=== PATIENT | male | born 1985 | race Hispanic/Latino ===

== ENCOUNTER 2024-01-05 19:53 | Emergency (ER) | payer SELFPAY ==
[2024-01-05] MEDS ORDERED: Boostrix 0.5 ML (Tdap) VIAL (>/=7 yrs of age) ONE (20:18)
[2024-01-05] MEDS ORDERED: Ondansetron ODT 4 MG TAB ONE (20:18)
[2024-01-05] MEDS ORDERED: HYDROcodone/Acetaminophen 10/325 mg Tablet ONE (20:18)
[2024-01-05] MEDS ORDERED: Lidocaine 1% (PF) 30 ML VIAL ONE (20:48)
[2024-01-05] MEDS ORDERED: Amoxicillin/Potassium Clav 875 MG TAB ONE (21:31)
== END 2024-01-05 21:35 | disposition home or self-care (01) ==
LOC: CSHERS 19:53
DX: S02.2XXA Fracture of nasal bones, initial encounter for closed fracture (principal); S01.21XA Laceration without foreign body of nose, initial encounter; Z75.8 Other problems related to medical facilities and other health care; Z23 Encounter for immunization; V89.2XXA Person injured in unspecified motor-vehicle accident, traffic, initial encounter
CPT/HCPCS: 12013; 70450; 70486; 72125; 76377; 90471; 90715; G0390; J2001; Q0162